=== PATIENT | female | born 1990 | race African-American/Black ===

== ENCOUNTER 2019-03-01 12:56 | Emergency (ER) | payer OTHER ==
[~2019-03-01] VITALS: Ht 160 cm; Wt 54.0 kg
[2019-03-01 13:00] VITALS: BP 109/79
[2019-03-01] MEDS ORDERED: IBUPROFEN 600600 M1 PO (13:47)
[2019-03-01] MEDS ORDERED: CORTISPORIN OTI10 M2 OTIC (13:47)
== END 2019-03-01 14:00 | disposition home or self-care (01) ==
LOC: ER 12:56
DX: H60.92 Unspecified otitis externa, left ear (principal); F41.9 Anxiety disorder, unspecified; F32.9 Major depressive disorder, single episode, unspecified

== ENCOUNTER 2019-03-27 02:43 | Emergency (ER) | payer OTHER ==
[~2019-03-27] VITALS: Ht 160 cm; Wt 56.2 kg
[~2019-03-27 02:43] MED LIST: CORTISPORIN OTI10 M2 OTIC; IBUPROFEN 600600 M1 PO
[2019-03-27 02:44] VITALS: BP 111/76
[2019-03-27] MEDS ORDERED: OLANZAPINE-FLU1 EAC4 PO (02:50)
[2019-03-27] MEDS ORDERED: MUCINEX D ER 11 EACH PO (04:16)
== END 2019-03-27 04:25 | disposition home or self-care (01) ==
LOC: ER 02:43
DX: J06.9 Acute upper respiratory infection, unspecified (principal); R05 Cough; F41.9 Anxiety disorder, unspecified; F32.9 Major depressive disorder, single episode, unspecified

== ENCOUNTER 2020-09-07 13:12 | Emergency (ER) | payer OTHER ==
[~2020-09-07] VITALS: Ht 160 cm; Wt 63.5 kg
[~2020-09-07 13:12] MED LIST changes: +MUCINEX D ER 11 EACH PO; +OLANZAPINE-FLU1 EAC4 PO
[2020-09-07] MEDS ORDERED: PROAIR HFA8.5 GM INH (13:57)
[2020-09-07] MEDS ORDERED: IBUPROFEN 600600 M1 PO (13:57)
[2020-09-07] MEDS ORDERED: CLONAZEPAM 0.50.5 M1 PO (13:57)
[2020-09-07] MEDS ORDERED: OLANZAPINE10 M1 PO (13:57)
[2020-09-07] MEDS ORDERED: EXCEDRIN CAPLE1 EACH PO (13:57)
[2020-09-07] MEDS ORDERED: PROZAC10 M1 PO (13:58)
[2020-09-07] MEDS ORDERED: AMITRIPTYLINE H10 M1 PO (13:58)
[2020-09-07 15:45] VITALS: BP 168/57
== END 2020-09-07 15:45 | disposition home or self-care (01) ==
LOC: ER 13:12
DX: M54.2 Cervicalgia (principal); Z88.6 Allergy status to analgesic agent; Z79.82 Long term (current) use of aspirin; Z79.899 Other long term (current) drug therapy; V49.88XA Car occupant (driver) (passenger) injured in other specified transport accidents, initial encounter; Y93.89 Activity, other specified; Y92.89 Other specified places as the place of occurrence of the external cause; Y99.9 Unspecified external cause status